=== PATIENT | male | born 1990 | race Caucasian/White ===

== ENCOUNTER 2022-04-20 16:00 | Outpatient (RCR) | payer OTHER, SELFPAY | END 2022-08-20 09:00 | disposition home or self-care (01) | PROVIDERS: PCP Surgery Surgery of the Hand; Visit Provider Surgery Surgery of the Hand | DX: M25.532 Pain in left wrist (principal); Z51.89 Encounter for other specified aftercare | CPT/HCPCS: 97033; 97035; 97110; 97140; 97165; X5282 ==